=== PATIENT | female | born 1965 | race Caucasian/White ===

== ENCOUNTER 2022-03-02 08:01 | Observation (INO) ==
--- NOTE | 2022-01-19 13:37 | PAT Medication Instructions ---
Medication Instructions Date of Service January 19, 2022 Home Medications Medication Instructions Recorded celecoxib 100 mg capsule (Celebrex) 100 mg PO BID #60 cap 10/09/21 Wheeled Walker #1 ea 01/19/22 atorvastatin 20 mg tablet 20 mg PO QAM citalopram 20 mg tablet 20 mg PO HS levothyroxine 75 mcg tablet 75 mcg PO HS lisinopril 20 mg-hydrochlorothiazide 12.5 mg tablet 1 tab PO HS celecoxib 100 mg capsule (Celebrex) 100 mg PO BID ASK your surgeon for instructions celecoxib 100 mg capsule (Celebrex) 100 mg PO BID Take morning of surgery With a small sip of water, OTHERWISE NOTHING TO EAT OR DRINK AFTER MIDNIGHT: atorvastatin 20 mg tablet 20 mg PO QAM Take evening before surgery citalopram 20 mg tablet 20 mg PO HS levothyroxine 75 mcg tablet 75 mcg PO HS lisinopril 20 mg-hydrochlorothiazide 12.5 mg tablet 1 tab PO HS Other Notes If you have any questions please call us at [phone] or [phone] or [phone] or [phone]
--- NOTE | 2022-01-19 15:28 | Anesthesiology Consultation ---
Date of Service January 19, 2022 Assessment & Plan (1) Encounter for pre-operative examination: COVID screening: Per assessment on 01/19: No known COVID-19 positive contacts or current COVID-19 related symptoms. Travel screen negative. Patient vaccinated. Surgeon arranging preop COVID testing. Awaiting results. Chart Review Chart Review: Acceptable Risk for Surgery and Patient seen in Pre Admission Testing Teaching & Discussion Pre-Anesthesia Teaching/Discussion Notes: Instructed NPO after midnight before surgery,except medications with 15 cc of water. Medication instructions provided according to the PAT guidelines. History Surgery Operation Date: 03/02/22 07:00 Proposed Procedures p Left Total Knee Arthroplasty - Julio César Otoole MD Height/Weight Height: 5 ft 4 in Weight: 94.3 kg Allergies Allergy/AdvReac Type Severity Reaction Status Date / Time Penicillins Allergy Intermediate Rash Verified 01/16/22 16:45 Medications Home Medications Medication Instructions Recorded Confirmed Last Taken atorvastatin 20 mg tablet 20 mg PO QAM 01/19/20 01/16/22 Unknown citalopram 20 mg tablet 20 mg PO HS 01/19/20 01/16/22 Unknown levothyroxine 75 mcg tablet 75 mcg PO HS 12/02/20 01/16/22 12/02/20 lisinopril 20 1 tab PO HS 12/02/20 01/16/22 12/01/20 mg-hydrochlorothiazide 12.5 mg tablet celecoxib 100 mg capsule (Celebrex) 100 mg PO BID #60 cap 10/09/21 01/16/22 Unknown Wheeled Walker #1 ea 01/19/22 01/19/22 Unknown Past Medical History Medical History (Updated 01/19/22 @ 15:45 by Ann Snyder) Anxiety Degenerative joint disease of left knee Depression Elevated cholesterol History of COVID-19 Dx 07/2021 > tested preop (asymptomatic at time and current) Hypertension Hypothyroidism Osteoarthritis Exercise / Class Metabolic Activity II 4-5 Yardwork/Stairs/Walk up hill (one FS (no CP, no SOB)) Past Family History Family History Sister Family history of reaction to anesthesia difficulty waking Past Surgical History Surgical History H/O prior ablation treatment Uterine ablation History of dacryocystorhinostomy B/L History of esophagogastroduodenoscopy (EGD) History of tooth extraction Partial upper denture Nausea and vomiting after administration of anesthetic agent Past Anesthesia History No Hx of Anesthesia Complications (except single episode PONV) Sister: "slow to wake" > no similar issue for patient History of PONV History of PONV (single episode) Social History Smoking Status: Never smoker Do You Dip or Chew Tobacco: No Hx Alcohol Use: No Hx Substance Use: No substance use type: does not use Review of Systems Patient denies chest pain, shortness of breath, dyspnea on exertion, fever, chills, cough, wheezing, palpitations. Physical Exam Vital Signs VITALS BP 164/98 P 71 TEMP 98.8 SP02 97%RA RESP 16 PHYSICAL Full cervical extension range of motion. Full TMJ range of motion. TMD 3.5 finger breaths Mallampati Score 2 Dentition: upper partial Lungs: clear throughout to auscultation Cardiac: regular rate and rhythm, I/ systolic murmur Spine: normal Carotid arteries: negative bruit Extremities: no edema Lab Results Anesthesia Preop Results Results Anesthesia Widget: WBC 6.45 K/ul (4.8-10.8) 01/19/22 Hgb 12.5 g/dl (12.0-16.0) 01/19/22 Hct 39.3 % (34.1-44.9) 01/19/22 Plt 219 K/uL (130-400) 01/19/22 Na 141 mmol/L (136-145) 01/19/22 K 3.7 mmol/L (3.5-5.1) 01/19/22 Cl 102 mmol/L (98-107) 01/19/22 CO2 32 mmol/L (21-32) 01/19/22 BUN 18 mg/dl (6-23) 01/19/22 Creat 0.75 mg/dl (0.6-1.2) 01/19/22 Glucose Level 106 mg/dl (70-99(Fasting)) H 01/19/22 PT 10.3 Seconds (9.0-12.0) 01/19/22 PTT 27.1 Seconds (21.0-31.0) 01/19/22 INR 1.0 (0.9-1.1) 01/19/22 Blood Type O Positive 01/19/22 Antibody Screen NEGATIVE 01/19/22 Testing Electrocardiogram Date: 01/19/22 Findings: + NSR @ (72) Chest X-Ray Date: 01/19/22 FINDINGS: PA and lateral chest radiographs are compared to study dated 07/23/2021. The cardiomediastinal silhouette is unremarkable. The lungs and pleural spaces are clear. There is no pneumothorax. The bony thorax appears intact. IMPRESSION: No active disease in the chest.
--- NOTE | 2022-02-28 11:48 | History and Physical Report ---
DATE OF DICTATION: 02/28/2022. CHIEF COMPLAINT: Persistent left knee pain. HISTORY OF PRESENT ILLNESS: The patient is a 57-year-old female who I had been following for several years for left knee pain and DJD. It has gradually gotten worse over the past 3 to 4 years. She de scribes medial and lateral pain. She has had extensive conservative care including multiple injectio ns including both steroid and gel shots, which have become less successful over time. She limps more as the day goes on. She now would like to have her knee fixed. PAST MEDICAL HISTORY: Significant for: 1. Hypertension. 2. Elevated cholesterol. 3. Hypothyroidism. 4. Obesity with BMI of 36. PAST SURGICAL HISTORY: Includes cardiac ablation in 2015. ALLERGIES: PENICILLIN, WHICH CAUSES A RASH. No breathing problems. CURRENT MEDICATIONS: Include: 1. Atorvastatin. 2. Celebrex. 3. Citalopram. 4. Levothyroxine. 5. Lisinopril/hydrochlorothiazide. SOCIAL HISTORY: A 57-year-old female. She is . 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 Does not smoke. FAMILY HISTORY: Noncontributory. REVIEW OF SYSTEMS: Negative for diabetes. No chest pain or shortness of breath. No history of DVT or PE. No known bleeding problems. PHYSICAL EXAMINATION: GENERAL: Shows a pleasant middle-aged female. Looks to be in pretty good health. HEENT: Benign. NECK: Supple. No lymphadenopathy. LUNGS: Clear to auscultation. HEART: Regular rate and rhythm. ABDOMEN: Soft, nontender, nondistended. EXTREMITIES: Grossly neurovascularly intact except as follows. Examination of the left knee reveals the patient ambulates with a slight bit of a limp. She does fav or the left side. She has got a fairly neutral alignment to her knee. Moderate soft tissue envelope . Range of motion is 0 to about 90-100 degrees. Fairly stiff in flexion. No pain with hip motion. X-RAYS: Left knee reviewed. It shows advanced medial compartment arthritis. She has got complete l oss of medial joint space. The rest the knee looks pretty good. ASSESSMENT: A 57-year-old female with advanced left knee medial compartment arthritis. She has fail ed conservative treatment. She would like to have her knee fixed. PLAN: We talked about treatment options. After extensive discussion, we are going to proceed with l eft knee replacement. The risks and benefits of this procedure were explained to the patient, includ e but not limited to DVT, PE, , infection, neurological injury, vascular injury, bleeding proble m, pain, limited range of motion, stiffness, failure to relieve her symptoms, incomplete relief of sy mptoms, etc. The patient understands and desires to proceed. Informed consent was obtained. She has a fairly stiff knee to start out. We are going to work hard to get a better knee motion. Yojana mccann is planning to be discharged to home and using an energy for therapy. Job ID: [id number]
[~2022-03-02 08:01] MED LIST: ACETAMINOPHEN 500 MG TAB PO SCH; ALLERGY Noted to ORDERED Medication SCH; BUPIVACAINE 0.5 % 5 MG/1 ML PF 10ML VIAL ONE; BUPIVACAINE LIPOSOME/PF 266 MG, BUPIVACAINE/EPINEPHRINE 50 ML, SODIUM CHLORIDE 0.9% 30 ... INFIL SCH; CeleBREX 200 MG CAP PO SCH; FAMOTIDINE 20 MG TAB PO SCH; LR 500ML BOLUS, THEN 15ML/HR IV SCH; LR 60ML/HR IV SCH; METOCLOPRAMIDE HCL 10 MG TABLET PO SCH; ROPIVACAINE 0.5% 5 MG/ML 30 ML VIAL ONE; Scopolamine 1 MG TDSY TD SCH; TRANEXAMIC ACID 1,000 MG **IV Intra-op IV SCH; ceFAZolin 2000MG 2,000 MG/15 ML SYR IV SCH
--- NOTE | 2022-03-02 08:43 | History & Physical Bridge Note ---
Date of Service March 02, 2022 History & Physical Bridge Note I have examined the patient, reviewed the History & Physical and in the interval since the performance of the History & Physical I have noted the following changes of clinical significance: no changes noted
[2022-03-02] MEDS ORDERED: Nursing to Pharmacy Communication SCH ×2 (09:15→15:00)
[2022-03-02] MEDS ORDERED: PROPOFOL IV EMULSION 10 MG/ML 20 ML VIAL IV ONE ×4 (09:34→13:43)
[2022-03-02] MEDS ORDERED: MIDAZOLAM HCL 1 MG/ML 2ML VIAL ONE ×2 (09:34→11:32)
[2022-03-02] MEDS ORDERED: fentaNYL citrate 100 MCG/2 ML VIAL ONE (09:34)
[2022-03-02] MEDS ORDERED: ONDANSETRON INJ 2 MG/ML 2 ML VIAL IV PRN ×2 (09:41→14:28)
[2022-03-02] MEDS ORDERED: ATROPINE SULFATE 0.1 MG/ML 10ML SYR IV PRN (09:41)
[2022-03-02] MEDS ORDERED: ePHEDrine sulfate 50 MG/ML AMP IV PRN (09:41)
[2022-03-02] MEDS ORDERED: fentaNYL citrate 100 MCG/2 ML VIAL IV PRN (09:41)
[2022-03-02] MEDS ORDERED: LIDOCAINE 2% MPF LOCAL 5 ML VIAL INFIL ONE (11:07)
[2022-03-02] MEDS ORDERED: BUPIVACAINE/EPINEPHRINE 0.25% 1:200,000 30 ML VIAL ONE (11:15)
[2022-03-02] MEDS ORDERED: SODIUM CHLORIDE 0.9% PF 50 ML VIAL ONE (11:15)
[2022-03-02] MEDS ORDERED: EPINEPHrine INJ 1 MG/ML AMP ONE (11:16)
[2022-03-02] MEDS ORDERED: BUPIVACAINE 0.25% 30 ML VIAL ONE (11:16)
[2022-03-02] MEDS ORDERED: BUPIVACAINE LIPOSOME 1.3% 266 MG/20 ML VIAL ONE (11:16)
[2022-03-02] MEDS ORDERED: DEXAMETHASONE SOD INJ 4 MG/ML VIAL ONE (11:48)
[2022-03-02] MEDS ORDERED: ONDANSETRON INJ 2 MG/ML 2 ML VIAL ONE (11:48)
--- NOTE | 2022-03-02 13:11 | Operative Report ---
PG Post Operative Report Pre & Post Diagnosis Operation Date: 03/02/22 10:40 Pre-Op Diagnosis: Left Knee Degenerative Joint Disease Post-Op Diagnosis: Left Knee Degenerative Joint Disease I identified the patient and participated in the time-out.: Yes Procedure Operation Date: 03/02/22 10:40 Actual Procedures p Left Total Knee Arthroplasty(Left) - Julio César Otoole MD Surgeon Julio César Otoole MD [employer]airy Farm Supervisor Malik Zaidi PA-C Estimated Blood Loss 50 Findings Consistent with Post-Op Diagnosis Fluids 1300 cc Specimens Left knee sent for pathology Drains None Anesthesia Type Spinal MAC Complications none Disposition Accompanied Patient To Recovery: No Indications Patient is a 57-year-old female is had a several year history of increasing left knee pain discomfort which became unresponsive conservative care. X-rays show advanced medial compartment arthritis with near complete loss of the joint space. She failed all conservative measures. She elected proceed with total knee arthroplasty. Description of Procedure Operative implants consist of: 1. Biomet Vanguard size 60 left posterior stabilized femoral component. 2. Biomet size 63 tibial tray. 3. 10 mm posterior stabilized polyethylene insert. 4. 28 x 8 all Paller patella. The patient was taken the operating, identified, and placed on the operating table supine position protectors were properly padded. IV antibiotics were provided by anesthesia team. A spinal anesthetic and abductor canal block had provided in the holding area. Iyer catheter was placed in sterile fashion. Left thigh turn was then placed in the left lower extremities then prepped and draped in usual sterile fashion. The left leg was elevated and exsanguinated with use of an Esmarch and a turn was placed at 300 mmHg. An anterior posterior left knee was then performed to longitudinal incision centered over the patella. Sharp dissection Through subcutaneous is down the extensor mechanism. Medial parapatellar arthrotomy incision was made. Some subperiosteal dissection was carried out medially. The fat pad was resected from Neath patella tendon. Lateral patellofemoral ligament was released. Patella subluxated laterally and the knee was flexed. The osteophytes taken off distal femur. ACL and PCL were then released from distal femur and the tibia subluxated anteriorly. External tibial alignment jig was then placed in the interface the tibia and adjusted 14 mm medially. Proximal tibial cut was made removed about 2 to 3 mm of bone from the medial side. The tibia sized to a size 63. Attention drawn the femur. The distal femur was entered with a sharp drill. Intramedullary canal was suction. A left 5 degree valgus cutting guide was placed this femoral cutting block was pinned in place. Distal femoral cut was made to take an additional 3 mm bone off the distal femur. The femur was then sized to a size 60. The AP cutting block was pinned parallel to the epicondylar axis which was 4 degrees of external rotation. The anterior cut, anterior chamfer, posterior cut, posterior chamfer cuts were made. The box cutting guide was placed in just slight lateral box cut was made. The knee was flexed. The remnants of the medial and lateral menisci were excised. The osteophytes taken off the posterior aspect of femur. Trial femoral component was placed. Tibial tray was pinned in maximum external rotation and the drill and stem punch were used to create defect in proximal tibia for the tibial tray. Knee was then trialed and the 10 mm insert fit most appropriately. Attention drawn the patella. The patella was cleaned of all soft tissues. Patella thickness measured 18 mm in thickness was cut down to 12. Was sized to a size 28 patella. The lug holes were drilled for the 28 patella. The lateral osteophyte was removed. Patella button was placed. Knee was taken through range of motion patella tracked nicely with no thumbs test. Attention drawn to placing permanent components. Nupathe all trial components were removed. Bone plug was placed in the distal femur limit blood loss. Double batch Palacos G cement was mixed. A Biomet Vanguard size 60 left posterior stabilized femoral component, a size 63 tibial tray, 10 mm posterior stabilized polyethylene insert, and a 28 x 8 all Paller patella then cemented in place. Knee was brought out into full extension until cement hardened. Final cement check was then performed. The pericapsular tissues were injected with total 100 cc of combination of 20 cc of Exparel, 30 cc normal saline, 50 cc of quarter percent Marcaine with epinephrine. Patient did receive 1 g tranexamic acid to the tourniquet was then let down for turn time 52 minutes. Hemostasis assured use electrocautery. Extensor mechanism closed with combination 1 PDS suture and 1 Vicryl suture in [id number] fashion. Extensor mechanism checked found to be intact and subcutaneous tissues then closed with 2 Dexon suture in a buried erupted fashion skin was closed skin ashley. Leg was then cleaned and dried and sterile dressing was Xeroform, 4 x 4's, sterile cast padding, Hola bandage were applied. Patient then transferred to the recovery room in stable condition. The patient tolerated procedure well and there were no complications. Malik Zaidi, my physician volunteer services assistant, was present for the entire procedure. His assistance was essential and required for appropriate patient positioning, prepping and draping, surgical exposure, performing the technical details of the operation, placement the implants, closure of the wound, and placement of the sterile bandage. I attest to the content of the Intraoperative Record and any orders documented therein. Any exceptions are noted below.
--- NOTE | 2022-03-02 13:25 | XRay Report ---
LEFT KNEE 2 VIEWS History: Left total knee arthroplasty. Degenerative arthritis. Postop. FINDINGS: The patient is status post a left total knee arthroplasty. The hardware is intact. No fract ure or dislocation. Skin ashley are in place. IMPRESSION: Left total knee arthroplasty. No evidence for hardware complication. ACT 112: Negative or not required by law. Electronically signed by: Carl Garcia M.D. 03/02/2022 1:24 PM
--- NOTE | 2022-03-02 14:13 | Anesthesiology Progress Note ---
Date of Service March 02, 2022 Anesthesia Post Procedure Vital Signs Vital Signs: Temp Pulse Pulse Resp BP BP Pulse Ox 03/02/22 14:05 62 13 151/81 H 99 03/02/22 13:53 97.3 F L 03/02/22 13:50 97.0 F L 63 12 147/63 H 96 03/02/22 13:40 63 12 162/81 H 95 03/02/22 13:30 71 17 146/69 H 99 03/02/22 13:20 75 15 145/69 H 93 03/02/22 13:10 75 17 141/75 H 96 03/02/22 13:03 97.5 F L 89 17 128/65 100 03/02/22 09:01 162/90 H 03/02/22 08:25 98.1 F 76 16 183/106 H 98 O2 Del Method O2 Flow Rate 03/02/22 14:05 Room Air 03/02/22 13:53 03/02/22 13:50 Room Air 03/02/22 13:40 Room Air 03/02/22 13:30 Room Air 03/02/22 13:20 Room Air 03/02/22 13:10 Room Air 03/02/22 13:03 Oxymask 4 03/02/22 09:01 03/02/22 08:25 Room Air Pain Intensity Left Knee: Pain Intensity: 5 Transfer of Care Handoff Completed per policy Notes Mental Status: alert / awake / arousable and participated in evaluation Patient Amnestic to Procedure: Yes Nausea / Vomiting: adequately controlled Pain: adequately controlled Airway Patency, RR, SpO2: stable & adequate BP & HR: stable & adequate Hydration State: stable & adequate Neuraxial Anesthesia: was administered and sensory block is resolving Anesthetic Complications: no major complications apparent and Pt Satisfied with anesthetic care
[2022-03-02] MEDS ORDERED: HYDROmorphone INJ 0.5 MG/0.5 ML SYR IV PRN (14:28)
[2022-03-02] MEDS ORDERED: NALOXONE HCL 0.4 MG/1 ML VIAL/CARP IV PRN (14:28)
[2022-03-02] MEDS ORDERED: oxyCODONE HCL IR 5 MG TAB (IMMEDIATE RELEASE) PO PRN (14:28)
[2022-03-02] MEDS ORDERED: ALUMINUM/MAGNESIUM SUSP 30 ML UDC PO PRN (14:28)
[2022-03-02] MEDS ORDERED: MAGNESIUM HYDROXIDE SUSP 30 ML UDC PO PRN (14:28)
[2022-03-02] MEDS ORDERED: METOCLOPRAMIDE HCL INJ 5 MG/ML 2 ML VIAL IV PRN (14:28)
[2022-03-02] MEDS ORDERED: bisacodyL 10 MG SUPP PR PRN (14:28)
[2022-03-02] MEDS ORDERED: diphenhydrAMINE Capsule 25 MG CAP PO PRN (14:28)
[2022-03-02] MEDS: SODIUM CHLORIDE 0.9% 1000ML 1,000 ML IV SCH (14:48)
[2022-03-02] MEDS: Scopolamine CHECK PATCH PLACEMENT SCH (15:25)
[2022-03-02] MEDS: KETOROLAC 30 MG/ML VIAL IV SCH ×2 (15:32→21:52)
[2022-03-02] MEDS: ACETAMINOPHEN 500 MG TAB PO SCH ×2 (15:32→20:42)
[2022-03-02] MEDS: ASCORBIC ACID 500 MG TAB PO SCH (15:36)
[2022-03-02] MEDS ORDERED: TRANEXAMIC ACID / 0.7% NACL 1,000 MG/100 ML BAG IV SCH (19:00)
[2022-03-02] MEDS: ceFAZolin 2000MG 2,000 MG/15 ML SYR IV SCH (19:42)
[2022-03-02] MEDS: ASPIRIN 81 MG ECTAB PO SCH (20:42)
[2022-03-02] MEDS: TAPENTADOL HCL ER 50 MG TABCR PO SCH (20:42)
[2022-03-02] MEDS: DOCUSATE SODIUM 100 MG CAP PO SCH (20:42)
[2022-03-02] MEDS: DOCUSATE SODIUM/SENNA 50/8.6MG TAB PO SCH (20:43)
[2022-03-02] MEDS ORDERED: LISINOPRIL/HCTZ 20/12.5MG 1 TAB TAB PO SCH (21:00)
[2022-03-02] MEDS ORDERED: CITALOPRAM 20 MG TAB PO SCH (21:00)
[2022-03-02] MEDS ORDERED: SENNA 8.6 MG TAB PO SCH (21:00)
[2022-03-02] MEDS ORDERED: LEVOTHYROXINE SODIUM 75 MCG TABLET PO SCH (21:00)
[2022-03-03] MEDS: Scopolamine CHECK PATCH PLACEMENT SCH ×2 (00:30→09:00)
[2022-03-03] MEDS: SODIUM CHLORIDE 0.9% 1000ML 1,000 ML IV SCH (00:40)
[2022-03-03] MEDS: KETOROLAC 30 MG/ML VIAL IV SCH ×2 (03:24→10:15)
[2022-03-03] MEDS: ceFAZolin 2000MG 2,000 MG/15 ML SYR IV SCH (03:25)
[2022-03-03] MEDS ORDERED: LEVOTHYROXINE SODIUM 75 MCG TABLET PO SCH (06:30)
[2022-03-03] MEDS ORDERED: dexAMETHasone 10 MG in SYRINGE 0 ML IV SCH (08:00)
[2022-03-03 08:28] LABS: Hematocrit (blood only) 33.4 % (34.1-44.9); Hemoglobin 10.9 g/dl (12.0-16.0); Mean Corpuscular Hemoglobin 30.4 pg (25.0-34.0); Mean Corpuscular Hgb Conc 32.6 g/dL (32.0-36.0); Platelet Count 167 K/uL (130-400); RDW Coefficient of Variation 13.2 % (11.5-14.5); Red Blood Count 3.59 M/uL (3.93-5.22)
[2022-03-03 08:54] LABS: BUN Creatinine Ratio 22.4 (10-20); Calcium 8.6 mg/dl (8.5-10.1); Creatinine Clr Calc Pharmacy 81.8 ml/min; Est GFR (African American) 88.8 ml/min; Est GFR (Non-African American) 76.6 ml/min; Potassium 3.6 mmol/L (3.5-5.1)
[2022-03-03] MEDS: DOCUSATE SODIUM 100 MG CAP PO SCH (08:57)
[2022-03-03] MEDS: DOCUSATE SODIUM/SENNA 50/8.6MG TAB PO SCH (08:58)
[2022-03-03] MEDS: ASPIRIN 81 MG ECTAB PO SCH (08:59)
[2022-03-03] MEDS: ACETAMINOPHEN 500 MG TAB PO SCH (08:59)
[2022-03-03] MEDS: ASCORBIC ACID 500 MG TAB PO SCH (08:59)
[2022-03-03] MEDS ORDERED: MULTIVITAMIN TAB PO SCH (09:00)
[2022-03-03] MEDS ORDERED: ATORVASTATIN 20 MG TAB PO SCH (09:00)
[2022-03-03] MEDS: TAPENTADOL HCL ER 50 MG TABCR PO SCH (09:02)
--- NOTE | 2022-03-03 09:35 | Orthopedic Progress Note ---
Date of Service March 03, 2022 Assessment & Plan (1) Status post total left knee replacement: She was seen and examined by Dr. Otoole today. Pain is controlled. Teds, scd's, and aspirin for dvt prophylaxis PT/OT wbat d/c planning: possible d/c home today with home health, depending on how she does with therapy Subjective . 57 year old patient POD #1 from left tka. Doing pretty well. Having some knee pain but is controlled. No chest pain or shortness of breath. She was nauseated some after getting up and walking. Review of Systems All systems reviewed & are unremarkable except as noted in HPI & below. Physical Exam .Alert and oriented. NAD. VSS Left leg: dressing intact. Able to dorsiflex and plantarflex appropriately. NVI Results & Data Results & Data Laboratory Results . Diagnostic Findings . PG Care Time/CCT Total # of Minutes Spent Total Time Spent with Patient: Total time spent is greater than 50% in coordination of care (as documented) at patient's floor/unit and/or counseling patient: Coding Level of Care Code 62818 Post Operative Follow-Up Diagnoses Status post total left knee replacement Z96.652
--- NOTE | 2022-03-08 14:23 | Discharge Summary ---
Date of Service March 08, 2022 Discharge Data Procedures Performed Operation Date: 03/02/22 10:40 Actual Procedures p Left Total Knee Arthroplasty(Left) - Julio César Otoole MD Hospital Course (1) Status post total left knee replacement: This is a 57 year old patient admitted on 03/02/22 and underwent total knee arthroplasty. She tolerated the procedure well and there were no complications. Transferred to the PACU post op and later to the orthopedic floor for further care. She was given ancef for antibiotic prophylaxis. She was also given KWESI stockings, SCDs, and aspirin for DVT prophylaxis. Hemoglobin, hematocrit, and vital signs were monitored during her hospital stay and remained stable. Did not require any blood transfusions. There were no complications during her hospital stay. By post op day #1 the patient was tolerating a regular diet, pain was reasonably controlled with oral pain medicine, and she was participating in physical therapy. On post op day #1 the patient was discharged home and set up with home health care. She was given printed discharge instructions including prescriptions for extra strength tylenol, aspirin, toradol, zofran, sennokot, and oxycodone. Continue physical therapy, weight bearing as tolerated. Continue KWESI stockings. Follow up approximately 2 weeks post op or sooner if there are problems or concerns. Coding Level of Care Code None Diagnoses Status post total left knee replacement Z96.652
== END 2022-03-03 13:42 | disposition home health service (06) ==
LOC: ASU 08:01 → 3E 08:01